=== PATIENT | female | born 1985 | race Caucasian/White ===

== ENCOUNTER → 2020-07-24 | Outpatient (CLI) | payer BC, OTHER ==
[~2020-07-24] MED LIST: AUGMENTIN 875-1 EACH PO; CHRONULAC20 GM/30 M PO; DULCOLAX10 MG PR; IBU800 MG PO; SOAP SUDS ENEMA PR
== END ==
LOC: NM 07-08 13:00
DX: R10.11 Right upper quadrant pain (principal)
CPT/HCPCS: 78226; A9537

== ENCOUNTER → 2020-10-14 | Outpatient (CLI) | payer BC, OTHER | LOC: RAD 12:00 | DX: K59.09 Other constipation (principal) | CPT/HCPCS: 74018 ==

== ENCOUNTER 2020-11-03 15:52 | Emergency (ER) | payer BC, OTHER ==
[~2020-11-03 15:52] MED LIST changes: -AUGMENTIN 875-1 EACH PO; -IBU800 MG PO; -SOAP SUDS ENEMA PR
[2020-11-03] MEDS ORDERED: AUGMENTIN 875-1 EACH PO (18:14)
[2020-11-03] MEDS ORDERED: IBU800 MG PO (18:14)
== END 2020-11-03 19:12 | disposition home or self-care (01) ==
LOC: ER1 15:52
DX: L03.011 Cellulitis of right finger (principal); E03.9 Hypothyroidism, unspecified; Z87.891 Personal history of nicotine dependence; Z88.2 Allergy status to sulfonamides; Z79.899 Other long term (current) drug therapy
CPT/HCPCS: 90471; 99283

== ENCOUNTER 2020-11-07 15:28 | Emergency (ER) | payer BC, OTHER ==
[~2020-11-07 15:28] MED LIST changes: +AUGMENTIN 875-1 EACH PO; +IBU800 MG PO
[2020-11-07 18:31] LABS: HEMOGLOBIN 13.4 gm/dl (12.3-15.3); RED BLOOD COUNT 4.62 M/UL (4.00-5.10); WHITE BLOOD COUNT 6.8 K/UL (4.5-11.0)
[2020-11-07 18:48] LABS: BUN/CREATININE RATIO 18 (0-10)
== END 2020-11-07 21:25 | disposition home or self-care (01) ==
LOC: ER1 15:28
PROVIDERS: Emergency Medicine
DX: R51.9 Headache, unspecified (principal); Z88.2 Allergy status to sulfonamides
CPT/HCPCS: 70450; 80053; 84703; 85025; 96374; 96375; 99284; J0780; J1100; J1200; J7030; Q9967

== ENCOUNTER 2020-11-24 16:34 | Emergency (ER) | payer BC, OTHER | END 2020-11-24 19:05 | disposition home or self-care (01) | LOC: ER1 16:34 | DX: I82.611 Acute embolism and thrombosis of superficial veins of right upper extremity (principal); Z88.2 Allergy status to sulfonamides | CPT/HCPCS: 93971; 99283 ==

== ENCOUNTER 2021-01-01 06:34 | Emergency (ER) | payer BC, OTHER ==
[2021-01-01] MEDS ORDERED: SOAP SUDS ENEMA PR (10:25)
== END 2021-01-01 10:55 | disposition home or self-care (01) ==
LOC: ER1 06:34
DX: K59.00 Constipation, unspecified (principal); E03.9 Hypothyroidism, unspecified; Z88.2 Allergy status to sulfonamides; Z79.899 Other long term (current) drug therapy
CPT/HCPCS: 99283

== ENCOUNTER 2021-02-16 11:14 | Emergency (ER) | payer OTHER ==
[~2021-02-16 11:14] MED LIST changes: +SOAP SUDS ENEMA PR
[2021-02-16 13:00] LABS: HEMOGLOBIN 13.3 gm/dl (12.3-15.3); RED BLOOD COUNT 4.56 M/UL (4.00-5.10); WHITE BLOOD COUNT 6.4 K/UL (4.5-11.0)
[2021-02-16 13:09] LABS: BUN/CREATININE RATIO 13 (0-10)
[2021-02-16] MEDS ORDERED: CITRATE OF MAG296 ML PO (16:07)
== END 2021-02-16 16:20 | disposition home or self-care (01) ==
LOC: ER1 11:14
PROVIDERS: Physician Assistant Medical
DX: K59.00 Constipation, unspecified (principal)
CPT/HCPCS: 74018; 80053; 81001; 84439; 84443; 84703; 85025; 99284

== ENCOUNTER 2021-05-01 06:48 | Emergency (ER) | payer OTHER ==
[~2021-05-01 06:48] MED LIST changes: +CITRATE OF MAG296 ML PO
[2021-05-01 08:45] LABS: HEMOGLOBIN 12.2 gm/dl (12.3-15.3); RED BLOOD COUNT 4.4 M/UL (4.00-5.10); WHITE BLOOD COUNT 6.5 K/UL (4.5-11.0)
[2021-05-01 09:15] LABS: BUN/CREATININE RATIO 16 (0-10)
== END 2021-05-01 10:10 | disposition home or self-care (01) ==
LOC: ER1 06:48
DX: R10.30 Lower abdominal pain, unspecified (principal)
CPT/HCPCS: 36415; 74018; 80053; 81001; 83690; 84703; 85025; 99284

== ENCOUNTER 2021-10-04 14:55 | Emergency (ER) | payer OTHER ==
[2021-10-04] MEDS ORDERED: MACROBID 100 M100 M1 PO (17:59)
[2021-10-04] MEDS ORDERED: DIFLUCAN150 MG PO (17:59)
== END 2021-10-04 18:36 | disposition home or self-care (01) ==
LOC: ER1 14:55
DX: B37.9 Candidiasis, unspecified (principal); N39.0 Urinary tract infection, site not specified; M79.645 Pain in left finger(s); Z88.2 Allergy status to sulfonamides
CPT/HCPCS: 73130; 81001; 84703; 99283

== ENCOUNTER 2021-10-17 16:22 | Emergency (ER) | payer OTHER ==
[~2021-10-17 16:22] MED LIST changes: +DIFLUCAN150 MG PO; +MACROBID 100 M100 M1 PO
[2021-10-17 19:32] LABS: HEMOGLOBIN 13.4 gm/dl (12.3-15.3); RED BLOOD COUNT 4.59 M/UL (4.00-5.10)
[2021-10-17 19:45] LABS: BUN/CREATININE RATIO 24 (0-10)
== END 2021-10-17 21:15 | disposition home or self-care (01) ==
LOC: ER1 16:22
PROVIDERS: Family Medicine
DX: R53.81 Other malaise (principal)
CPT/HCPCS: 80048; 84439; 84443; 85025; 99283

== ENCOUNTER 2022-01-06 15:41 | Emergency (ER) | payer OTHER ==
[2022-01-06 16:20] LABS: HEMOGLOBIN 12.5 gm/dl (12.3-15.3); RED BLOOD COUNT 4.31 M/UL (4.00-5.10); WHITE BLOOD COUNT 9.3 K/UL (4.5-11.0)
[2022-01-06 17:09] LABS: BUN/CREATININE RATIO 16 (0-10)
[2022-01-06] MEDS ORDERED: DULCOLAX5 MG PO (20:53)
[2022-01-06] MEDS ORDERED: ADULT GLYCERIN1 EACH PR (20:53)
[2022-01-06] MEDS ORDERED: MECLIZINE HCL25 MG PO (20:53)
== END 2022-01-06 21:05 | disposition home or self-care (01) ==
LOC: ER1 15:41
PROVIDERS: Nurse Practitioner
DX: K59.00 Constipation, unspecified (principal); Z88.2 Allergy status to sulfonamides; Z20.822 Contact with and (suspected) exposure to COVID-19
CPT/HCPCS: 0240U; 74018; 80053; 81001; 83605; 83690; 84439; 84443; 84703; 85025; 87086; 96360; 99283